=== PATIENT | male | born 1970 | race Two or more races ===

== ENCOUNTER 2018-09-15 10:07 | Outpatient (CLI) | payer OTHER ==
[~2018-09-15] VITALS: Ht 165.1 cm; Wt 91.6 kg
[2018-09-15 10:30] VITALS: BP 133/80
[2018-09-15] MEDS ORDERED: PANTOPRAZOLE SO40 MG ORAL (12:54)
[2018-09-15] MEDS ORDERED: HYDROCHLOROTH12.5 M2 ORAL (12:54)
[2018-09-15] MEDS ORDERED: LOSARTAN POTASS50 MG ORAL (12:54)
--- NOTE | 2018-09-15 15:30 | Consultation ---
DATE OF CONSULTATION: 09/15/2018 CHIEF COMPLAINT: Chronic GERD. HISTORY OF PRESENT ILLNESS: The patient is a 48-year-old male who was referred to us for evaluation of chronic GERD PAST MEDICAL HISTORY: 1. Hypertension. 2. GERD. PAST SURGICAL HISTORY: None. MEDICATIONS: Pantoprazole, hydrochlorothiazide. FAMILY HISTORY: Significant for diabetes and high blood pressure. No malignancies. SOCIAL HISTORY: The patient denies any tobacco, alcohol, or drug abuse. ALLERGIES: No known drug allergies. PHYSICAL EXAMINATION: VITAL SIGNS: Temperature 98, blood pressure 138/80, pulse 70, respirations 20. HEENT: Normocephalic and atraumatic. Sclerae are anicteric. NECK: Supple. No obvious evidence of lymphadenopathy. CARDIOVASCULAR: Regular rate and rhythm. Plus S1 and S2. No obvious murmur. LUNGS: Clear to auscultation bilaterally. ABDOMEN: Positive bowel sounds. Soft and nontender. No rebound. No guarding. No peritoneal sign. EXTREMITIES: No cyanosis. No clubbing. No edema. ASSESSMENT AND PLAN: 1. GERD, chronic. Currently on pantoprazole with partial response. The patient will need endoscopy, he agreed. We will plan for when insurance authorizes it. 2. The patient is 48 years old with no prior history of colonoscopy. The patient also will need colonoscopy, so we will plan for endoscopy and colonoscopy when insurance authorizes it. Tim Rodriguez M.D. DR: Grace JOB#: [id number] CC:
== END 2018-09-15 12:07 | disposition home or self-care (01) ==
LOC: PAN 10:07
DX: K21.9 Gastro-esophageal reflux disease without esophagitis (principal); I10 Essential (primary) hypertension
CPT/HCPCS: 99202

== ENCOUNTER 2018-11-11 14:46 | Outpatient (CLI) | payer OTHER ==
[~2018-11-11 14:46] MED LIST: HYDROCHLOROTH12.5 M2 ORAL; LOSARTAN POTASS50 MG ORAL; PANTOPRAZOLE SO40 MG ORAL
--- NOTE | 2018-11-12 13:10 | General Progress Note ---
Assessment/Plan Problem List: (1) Gastritis ICD Codes: K29.70 - Gastritis, unspecified, without bleeding SNOMED: 6062257 (2) Diverticulosis ICD Codes: K57.90 - Diverticulosis of intestine, part unspecified, without perforation or abscess without bleeding SNOMED: 638290673 (3) Colon polyps ICD Codes: K63.5 - Polyp of colon SNOMED: 98519132 Assessment/Plan: ppi repeat colonoscopy in 5 years Subjective ROS Limited/Unobtainable: Yes Allergies: Coded Allergies: No Known Allergies (Unverified , 09/15/18) Objective General Appearance: alert EENT: normal ENT inspection Neck: supple Cardiovascular: normal rate Respiratory/Chest: decreased breath sounds Abdomen: normal bowel sounds, non tender, soft Extremities: non-tender Tim Rodriguez MD November 12, 2018 13:10
== END 2018-11-11 15:55 | disposition home or self-care (01) ==
LOC: PAN 14:46
DX: K29.70 Gastritis, unspecified, without bleeding (principal); K57.90 Diverticulosis of intestine, part unspecified, without perforation or abscess without bleeding; K63.5 Polyp of colon